=== PATIENT | male | born 1970 | race African-American/Black ===

== ENCOUNTER 2018-11-07 15:01 | Emergency (ER) | payer MEDICARE, OTHER ==
[~2018-11-07] VITALS: Ht 195.6 cm; Wt 95.1 kg
[2018-11-07 15:28] VITALS: Ht 195.6 cm; Wt 95.1 kg
[2018-11-07] MEDS ORDERED: MINO10TA16 PO (19:16)
[2018-11-07] MEDS ORDERED: CINA60TA PO (19:16)
[2018-11-07] MEDS ORDERED: FAMO20TA18 PO (19:17)
[2018-11-07] MEDS ORDERED: CLON0.2T5 PO (19:17)
[2018-11-07] MEDS ORDERED: SUCR500T PO (19:18)
[2018-11-07] MEDS ORDERED: CALC0.5C10 PO (19:20)
[2018-11-07] MEDS ORDERED: CALC667C PO (19:21)
--- NOTE | 2018-11-07 21:56 | ERD ---
ER Documentation Chief Complaint Chief Complaint pt c/o right sided abdominal pain with n/v x 4days; last dialysis sat This is a 48-year-old male with a past medical history of hypertension, diabetes, end-stage renal disease status post right arm fistula on hemodialysis daily at home who is now presenting for multiple complaints. The patient has been traveling on vacation. He is usually from [place], but he is in [place] on vacation. He was supposed to have his dialysis machine delivered to the place that he was staying in several days ago, but it did not arrive until today. The patient's last dialysis was on Saturday. Over the last 4 days, the patient is endorsed moderate sharp cramping aching general abdominal tenderness, but it seems to be worse in the right upper quadrant. He endorses nausea with multiple episodes of nonbilious nonbloody vomiting. He does not endorse any diarrhea, but he does report difficulty with bowel movements. He believes that he is constipated. The patient does not have any fever today. The patient has had no headache or vision changes. The patient does not endorse neck or back pain. The patient denies lightheadedness or dizziness. The patient has had no chest pain or tr ouble breathing. The patient has had no focal deficits. The patient has had no weakness or numbness or tingling to the face or extremities. ROS All systems reviewed and are negative except as per history of present illness. Medications Home Meds Reported Medications Calcium Acetate* (Calcium Acetate*) 667 Mg Capsule, 667 MG PO WITH MEALS, #30 CAP 11/07/18 Calcitriol* (Calcitriol*) 0.5 Mcg Capsule, 1 MCG PO DAILY, CAP 11/07/18 Sucroferric Oxyhydroxide (Velphoro) 500 Mg Tab.chew, 1000 MG PO WITH MEALS, TAB.CHEW 11/07/18 Famotidine* (Famotidine*) 20 Mg Tablet, 20 MG PO DAILY, #30 TAB 11/07/18 Clonidine Hcl* (Clonidine Hcl*) 0.2 Mg Tablet, 0.2 MG PO NEEDED, TAB 11/07/18 Cinacalcet* (Sensipar*) 60 Mg Tablet, 60 MG PO Q MON,WED,FRI, TAB 11/07/18 Minoxidil* (Lonitin*) 10 Mg Tab, 30 MG PO DAILY, TAB 11/07/18 Allergies Allergies: Coded Allergies: No Known Allergy (Unverified , 11/07/18) PMhx/Soc History of Surgery: No Anesthesia Reaction: No Hx Neurological Disorder: No Hx Respiratory Disorders: No Hx Cardiac Disorders: Yes (htn) Hx Psychiatric Problems: No Hx Miscellaneous Medical Probl: Yes (ESRD) Hx Alcohol Use: No Hx Substance Use: No Hx Tobacco Use: No Smoking Status: Never smoker FmHx Family History: No diabetes Physical Exam Vitals Vital Signs Date Temp Pulse Resp B/P (MAP) Pulse Ox O2 O2 Flow FiO2 Time Delivery Rate 11/07/18 88 19 140/61 98 Room Air 20:16 (87) 11/07/18 97.5 78 20 143/66 98 15:28 (91) Physical Exam Const: No acute distress Head: Atraumatic Eyes: Normal Conjunctiva ENT: Normal External Ears, Nose. Dry mucous membranes. Neck: Full range of motion. No meningismus. Resp: Clear to auscultation bilaterally Cardio: Regular rate and rhythm, no murmurs Abd: Soft, non distended. General abdominal discomfort without exquisite tenderness. No guarding or rebound. Normal bowel sounds. Skin: No petechiae or rashes Back: No midline or flank tenderness Ext: No cyanosis, or edema. Right arm fistula with pulsatile palpable thrill. Neur: Awake and alert Psych: Normal Mood and Affect Result Diagram: 11/07/18 1738 11/07/18 1738 Results 24 hrs Laboratory Tests Test 11/07/18 17:34 11/07/18 17:38 Bedside Glucose 114 mg/dL White Blood Count 8.7 10^3/ul Red Blood Count 4.19 10^6/ul Hemoglobin 11.4 g/dl Hematocrit 34.4 % Mean Corpuscular Volume 82.1 fl Mean Corpuscular Hemoglobin 27.2 pg Mean Corpuscular Hemoglobin Concent 33.1 g/dl Red Cell Distribution Width 13.8 % Platelet Count 257 10^3/UL Mean Platelet Volume 8.9 fl Immature Granulocytes % 1.300 % Neutrophils % 77.0 % Lymphocytes % 8.2 % Monocytes % 10.1 % Eosinophils % 3.1 % Basophils % 0.3 % Nucleated Red Blood Cells % 0.0 /100WBC Immature Granulocytes # 0.110 10^3/ul Neutrophils # 6.7 10^3/ul Lymphocytes # 0.7 10^3/ul Monocytes # 0.9 10^3/ul Eosinophils # 0.3 10^3/ul Basophils # 0.0 10^3/ul Nucleated Red Blood Cells # 0.0 10^3/ul Prothrombin Time 14.3 Sec Prothrombin Time Ratio 1.1 INR International Normalized Ratio 1.10 Sodium Level 141 mmol/L Potassium Level 4.2 mmol/L Chloride Level 91 mmol/L Carbon Dioxide Level 27 mmol/L Anion Gap 23 Blood Urea Nitrogen 86 mg/dl Creatinine 15.82 mg/dl Est Glomerular Filtrat Rate mL/min 3 mL/min Glucose Level 121 mg/dl Calcium Level 10.0 mg/dl Total Bilirubin 0.2 mg/dl Direct Bilirubin 0.00 mg/dl Indirect Bilirubin 0.2 mg/dl Aspartate Amino Transf (AST/SGOT) 24 IU/L Alanine Aminotransferase (ALT/SGPT) 20 IU/L Alkaline Phosphatase 99 IU/L Total Protein 8.9 g/dl Albumin 4.2 g/dl Globulin 4.70 g/dl Albumin/Globulin Ratio 0.89 Lipase 92 U/L Procedures/MDM MDM The patient's presentation warrants further investigation. Previous medical records, if available, were reviewed. LABS The patient's laboratory testing was obtained and reviewed. No emergent treatment was required unless described below. CBC: Normocytic anemia, not emergent. No E/o systemic infection or thr ombocytopenia Chemistry: Elevated anion gap but no significant acidosis. Significantly elevated BUN and creatinine in line with known end-stage renal disease. No electrolyte abnormalities requiring emergent dialysis. No E/o severe alkalosis or liver disease or diabetic ketoacidosis Lipase: No E/o pancreatitis PT/INR: No E/o significant coagulopathy Urine: Patient is anuric EKG EKG read by me: Rate/Rhythm: Regular rate and rhythm at a rate of 79 bpm Intervals: Normal Dudley: Normal Impression: LVH with early repolarization. No evidence of acute ischemia or arrhythmia IMAGING Imaging and Radiology interpretation reviewed. CXR FINDINGS: Diminished lung volumes with compressive changes. Vascular crowding and bilateral basilar atelectasis. No acute infiltrate is seen, effusion, or pneumothorax. The cardiomediastinal silhouette is normal. There is elevation of the base of the heart due to low lung volumes. Soft tissues and bony structures are unremarkable. IMPRESSION: Low lung volumes with compressive changes and basilar atelectasis. Otherwise, unremarkable chest x-ray. No acute infiltrate is seen. Electronically viewed and signed by .Wale Bassett MD, MD on 11/07/2018 18:33 Gallbladder ultrasound FINDINGS: The liver is normal in echogenicity and measures 21.9 cm. No focal hepatic masses are seen. The gallbladder is physiologically distended. There are calcified layering gallstones. Mild diffuse thickening is noted of the gallbladder wall. No pericholecystic fluid is seen. 5 mm gallbladder wall polyp is noted in the fundal region. The intra and extrahepatic bile ducts are normal in caliber. The common bile duct measures 4.6 mm. Midline images demonstrate the pancreas to be normal in echogenicity without obvious inflammatory change. Pancreatic tail is suboptimally seen. Survey views of the right kidney demonstrate no evidence of hydronephrosis or renal calculi. Right kidney is increased in echogenicity. There are multiple simple appearing right renal cyst with the largest cyst measuring 2 cm. The right kidney measures 10.1 cm. IMPRESSION: 1. Cholelithiasis. There is mild thickening of the gallbladder wall. No pericholecystic fluid is seen. Recommend clinical correlation to exclude acute cholecystitis. 2. In addition, 5 mm gallbladder wall polyp is noted in the fundal region. This should be followed. 3. No biliary duct dilatation. 4. Hepatomegaly. 5. Increased right renal cortical echogenicity suggest medical renal disease. Electronically viewed and signed by .Dennis Gant MD, on 11/07/2018 18:49 CT abdomen pelvis FINDINGS: Evaluation of the lung bases demonstrates mild bibasilar atelectasis. Abdomen: The liver is mildly enlarged. There is no focal mass or dilatation of the biliary tree. The gallbladder is not distended. Multiple gallstones are identified. The spleen is mildly enlarged. The pancreas and bilateral adrenal glands are within normal limits. Bilateral kidneys are normal in size with innumerable cysts. There are multiple calculi within the right kidney measuring up to 3 mm in size. There is no radiopaque ureteral calculus identified. There is no hydronephrosis or hydroureter. There is no retroperitoneal adenopathy. The abdominal aorta is of normal caliber with scattered atherosclerotic calcifications. Evaluation of the bowel is limited by lack of contrast. There is no bowel obstruction or free air. The appendix is absent. There is no diverticulosis or diverticulitis. There is no ascites. Pelvis: The bladder demonstrates moderate wall thickening. There are prominent inguinal lymph nodes bilaterally with the largest on the right measuring 2.4 x 1.3 cm. The prostate and seminal vesicles are within normal limits. There is no significant pelvic free fluid. Evaluation of the osseous structures demonstrates no suspicious lytic or blastic lesion. IMPRESSION: Mild hepatosplenomegaly. Cholelithiasis. Nonobstructing right renal calculi. Bilateral renal cysts. Moderate bladder wall thickening could be due to underdistension. Clinical correlation is needed to exclude cystitis. Bilateral shotty inguinal lymph nodes. Vascular calcifications reflective of atherosclerosis. Otherwise no acute abnormality identified within the abdomen and pelvis Electronically viewed and signed by Lamont Carvajal MD, MD on 11/07/2018 20:33 TREATMENT/DISPOSITION The patient presents for abdominal pain, nausea and vomiting. The patient also reports constipation. The patient's BUN and creatinine are quite elevated, but this does not seem to be new for the patient. The patient does not have any emergent electrolyte abnormalities requiring dialysis immediately, but I did offer the patient admission to have dialysis completed. The risks and benefits of admission were discussed with the patient. Shared decision-making was enacted. 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 With respect to the patient's abdominal pain, this was worked up fully. I do suspect that the patient's abdominal pain is related to missing dialysis. There is evidence of gallbladder wall thickening and cholelithiasis. However, the patient is afebrile with no white count. There is no evidence of obstructive cholestatic liver disease. There is no evidence of cholecystitis on the CT scan. My suspicion for acute cholecystitis is decreased. Biliary colic is certainly a possibility. I discussed the possibility of admission for evaluation by surgeon. Again shared decision-making was enacted, and the patient declined admission currently. The patient does feel constipated currently. The patient may be given MiraLAX to treat this in an outpatient setting. An enema was offered, but the patient declined. An opiate such as morphine was also offered to the patient, but he also declined this. He has been taking Tylenol and Motrin at home with some relief. He did not want any Tylenol or Motrin in the emergency department today. The patient does not have any evidence of peritonitis. The patient does not have clinical symptoms concerning for mesenteric ischemia or ischemic colitis. I have low suspicion for gastritis, PUD or GERD. The patient's lipase is normal. I have low suspicion for pancreatitis. The patient's CT does not reveal any evidence of appendicitis. Additionally, the patient had a previous appendectomy. The patient does not have suprapubic tenderness. I have decreased suspicion for cystitis. The patient was unable to provide a urine sample in the emergency department to assess this further. The patient has not had any black or bloody or tarry stools, and I have low suspicion for diverticulosis or diverticulitis. The patient does not have any flank tenderness. The patient does not have gross hematuria. I have decreased suspicion for nephrolithiasis or renal colic. The patient does not have any palpable pulsatile mass or severe abdominal pain radiating to the back. I have low suspicion for aortic aneurysm, dissection or rupture. DISCHARGE Upon reevaluation of the patient, symptoms have improved. No emergent diagnoses were identified. At this time, I feel that the patient stable for discharge. The patient was instructed to follow-up with a primary care physician in 1-3 days. The patient will be given strict precautions with which to return to the emergency department. Prescriptions: MiraLAX, Zofran The patient's blood pressure was elevated at greater than 120/80 while in the emergency department. The patient was otherwise stable with no evidence of hypertensive urgency or emergency. The patient does not require admission for blood pressure control. I have discussed with the patient the risks of hypertension. I have instructed the patient to return to the ER for any new or worsening symptoms including chest pain, shortness of breath, headache, blurred vision, confusion, nausea, vomiting or LOC. I have advised the patient to follow up with the primary care physician for outpatient monitoring and treatment for hypertension in 1-3 days. Disclaimer: Inadvertent spelling and grammatical errors are likely due to EHR/dictation software use and do not reflect on the overall quality of patient care. Note that the electronic time recorded on this note does not necessarily reflect the actual time of the patient encounter. Departure Diagnosis: Primary Impression: Abdominal pain Abdominal location: generalized Qualified Codes: R10.84 - Generalized abdominal pain Additional Impressions: Biliary colic Cholelithiasis Cholelithiasis location: gallbladder Cholecystitis presence: without cholecystitis Biliary obstruction: without biliary obstruction Qualified Codes: K80.20 - Calculus of gallbladder without cholecystitis without obstruction Nausea & vomiting Vomiting type: unspecified Vomiting Intractability: non-intractable Qualified Codes: R11.2 - Nausea with vomiting, unspecified Constipation Constipation type: unspecified constipation type Qualified Codes: K59.00 - Constipation, unspecified End stage renal disease on dialysis Normocytic anemia Condition: Stable Patient Instructions: Abdominal Pain, Chronic Kidney Disease, Gallstones, Nausea and Vomiting-Adult Additional Instructions: Thank you for for coming to [facility] for your care today. Please ask your nurse or provider if you have questions about your care today and do not leave until all your questions have been answered. Please use any medications given as directed and follow-up with your doctor (or the doctor you were referred to) in the next 1-3 days. If you do not have a primary care doctor you may follow up at the [facility] or [facility] (listed below). You may also use motrin and tylenol as needed for fever and/or pain unless instructed otherwise by your provider or nurse. Indications for more urgent follow-up have been discussed, but you may return to the Emergency Department at ANY time for any worrisome or worsening symptoms. If you have abdominal pain, please know that no test or exam you received is perfect and you should follow up within 8 hours for continued pain. If you had any imaging studies today, such as an X-Ray or CT Scan, these studies will be reviewed later by a radiologist. You will be called if there are important findings that were not identified today, so make sure the contact information you provided at registration is correct. If you received any narcotic pain control medicine today, such as Vicodin, Morphine or Dilaudid, your coordination and judgment may be affected for a number of hours. Please do not drive or operate heavy machinery, and you may want someone to assist you at home. If you were given a prescription for narcotic medication, be aware that it is very addictive- use sparingly and only if necessary. PLEASE SEEK FURTHER EVALUATION AND MANAGEMENT AT YOUR DOCTORS OFFICE WITHIN THE NEXT 1-3 DAYS. IT IS YOUR RESPONSIBILITY TO MAKE AN APPOINTMENT FOR FOLOW-UP CARE. IF YOU HAVE A PRIMARY DOCTOR, PLEASE CALL THEIR OFFICE TO SCHEDULE AN APPOINTMENT FOR FOLLOW UP. IF YOU DO NOT HAVE A PRIMARY DOCTOR YOU CAN CALL OUR PHYSICIAN REFERRAL HOTLINE AT IF YOU CAN NOT AFFORD TO SEE A PHYSICIAN YOU CAN CHOSE FROM THE FOLLOWING [facility] CLINICS: [facility] [address] [facility] [address] [facility] [facility] [address] [facility] [address] [facility] [address] [facility]. [facility]. [address] DONAVON CHEW MD Nov 07, 2018 21:54
[2018-11-07] MEDS ORDERED: ONDA8TAB9 PO (21:57)
[2018-11-07] MEDS ORDERED: POLY17PO6 PO (21:57)
[2018-11-07 22:25] VITALS: BP 137/68; PULSE 79; RESP 20
== END 2018-11-07 22:44 | disposition home or self-care (01) ==
LOC: E/R 15:01
DX: K80.50 Calculus of bile duct without cholangitis or cholecystitis without obstruction (principal); K80.20 Calculus of gallbladder without cholecystitis without obstruction; K59.00 Constipation, unspecified; D64.9 Anemia, unspecified; N18.6 End stage renal disease; I12.0 Hypertensive chronic kidney disease with stage 5 chronic kidney disease or end stage renal disease; E11.22 Type 2 diabetes mellitus with diabetic chronic kidney disease; Z99.2 Dependence on renal dialysis
CPT/HCPCS: 36415; 71045; 74176; 76705; 80053; 82962; 83690; 85025; 85610